=== PATIENT | female | born 2000 | race Caucasian/White ===

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

== ENCOUNTER 2021-07-06 12:59 | Outpatient (REF) | payer BC, SELFPAY ==
[2021-07-08 12:43] LABS: COVID-19 RT-PCR UVMMC Result Negative (Negative)
== END 2021-07-06 13:00 | disposition home or self-care (01) ==
LOC: LBN 12:59
PROVIDERS: PCP Family Medicine; Visit Provider Physician Assistant
DX: Z20.822 Contact with and (suspected) exposure to COVID-19 (principal)
CPT/HCPCS: U0003